=== PATIENT | female | born 1990 | race American Indian/Alaskan Native ===

== ENCOUNTER 2018-11-12 08:37 | Emergency (ER) | payer MEDICAID, OTHER ==
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
== END 2018-11-12 09:34 | disposition home or self-care (01) ==
LOC: ED 08:37
CPT/HCPCS: 99282

== ENCOUNTER 2018-11-23 12:16 | Emergency (ER) | payer SELFPAY ==
[2018-11-23 12:22] VITALS: BP 114/70
[2018-11-23] MEDS ORDERED: BOOSTRIX IM ONE (12:24)
--- NOTE | 2018-11-23 12:25 | Emergency Department Report ---
Chief Complaint: Wound/Laceration Stated Complaint: LFT PINKY INJURY Time Seen by Provider: 11/23/18 12:23 - HPI History of Present Illness: This is a 28 y.o. female that presents with a laceration to left 5th finger. Patient states she was washing dishes at home last night and accidentally cut her finger with the knife. Patient cleaned the area with soap and water and apply Neosporin. There is pain to area. Patient states it appears to be healing fine but concerned of risk of infection. She denies drainage, swelling, numbness or tingling, paresthesias, or redness. - ROS Review of Systems: Skin: Laceration to left lateral fifth finger. - Exam Vital Signs: Vital Signs 11/23/18 12:20 Temperature 97.7 F Pulse Rate 74 Respiratory 16 Rate Blood Pressure 114/70 O2 Sat by Pulse 99 Oximetry Physical Exam: GENERAL: The patient is well looking, in no acute distress. HEENT: Atraumatic and normocephalic. Pupils are equal, round, reactive to light, and accommodation. Extraocular movements are intact. There is no icterus, cyanosis, or pallor of the conjunctivae. Tympanic membranes normal bilaterally. Nasal turbinates are clear without exudates. Sinuses nontender to percussion. Posterior pharynx is normal. No exudates are noted. CHEST: Air entry is adequate bilaterally with no rhonchi, and crackles. HEART: Sounds 1 and 2 are heard and are normal. Regular rate and rhythm, no tachycardic, murmurs, gallops, or rubs. ABDOMEN: Soft and nontender. Bowel sounds are present and normal. There is no hepatosplenomegaly. SKIN: Half a centimeter laceration to left lateral distal phalanx, scan approximated, tenderness, no erythema or drainage, or swelling. EXTREMITIES: Without edema, cyanosis, or clubbing. MSE screening note: Focused history and physical exam performed. Due to findings the following was ordered: Boostrix vaccine given ED Medical Decision Making - Medical Decision Making This is a 28 y.o. female presents with left 5th digit laceration 1 day. Patient examined by me and stable. Patient is non-toxic appearing and stable. Well healing wound tenderness to touch. Given tetanus vaccine while in ER. Discharged home for outpatient treatment with clindamycin. Discussed ER care plan with patient. Patient agreed with plan. F/U with PCP. ED Disposition for MSE Clinical Impression: Laceration of finger of left hand Qualifiers: Encounter type: initial encounter Finger: little finger Damage to nail status: without damage Foreign body presence: without foreign body Qualified Code(s): S61.217A - Laceration without foreign body of left little finger without damage to nail, initial encounter Disposition: TO HOME OR SELFCARE Is pt being admited?: No Does the pt Need Aspirin: No Condition: Stable Instructions: Acute Wound Care (ED), Finger Laceration (ED) Additional Instructions: Take antibiotics as prescribed for the full course. Keep wound dry and clean for 48 hours. Avoid putting to much tension on wound site. Prop arm up on pillows to decrease swelling. Follow up with Primary Care Provider in 2-3 days. Return to ER if red, swollen, foul discharge, or fever. Prescriptions: Clindamycin [Clindamycin CAP] 300 mg PO Q8H #21 cap Referrals: [facility] [Outside] - 3-[address] [facility] [Outside] - 3-5 Days [facility] [Outside] - 3-5 Days Forms: Work/School Release Form(ED) Time of Disposition: 12:33
== END 2018-11-23 12:45 | disposition home or self-care (01) ==
LOC: ED 12:16
DX: S61.217A Laceration without foreign body of left little finger without damage to nail, initial encounter (principal); W26.0XXA Contact with knife, initial encounter; Y93.89 Activity, other specified; Y92.89 Other specified places as the place of occurrence of the external cause; Y99.8 Other external cause status
CPT/HCPCS: 90471; 90715; 99282

== ENCOUNTER 2019-12-04 02:12 | Emergency (ER) | payer SELFPAY ==
[2019-12-04] MEDS ORDERED: LACTATED RINGERS 1,000 ML IV ONE (02:38)
[2019-12-04] MEDS ORDERED: MORPHINE 4 MG/1 ML INJ IV ONE (02:38)
[2019-12-04] MEDS ORDERED: FAMOTIDINE 20 MG/2 ML INJ IV ONE (02:38)
[2019-12-04] MEDS ORDERED: ONDANSETRON 4 MG/2 ML INJ IV ONE (02:38)
[2019-12-04 02:58] LABS: Basophils # (Auto) 0.1 K/mm3 (0.0-0.1); Basophils % (Auto) 0.9 % (0.0-1.8); Eosinophils # (Auto) 0.3 K/mm3 (0.0-0.4); Eosinophils % (Auto) 2.4 % (0.0-4.3); Hematocrit 37.7 % (30.3-42.9); Hemoglobin 12.3 gm/dl (10.1-14.3); Lymphocytes # (Auto) 1.9 K/mm3 (1.2-5.4); Lymphocytes % (Auto) 17.4 % (13.4-35.0); Mean Corpuscular HGB Conc 33 % (30-34); Mean Corpuscular Volume 98 fl (79-97); Monocytes # (Auto) 0.6 K/mm3 (0.0-0.8); Monocytes % (Auto) 5.2 % (0.0-7.3); Platelet Count 248 K/mm3 (140-440); Red Blood Count 3.85 M/mm3 (3.65-5.03); Red Cell Distribution Width 12.9 % (13.2-15.2)
[2019-12-04 03:14] LABS: Alanine Aminotransferase 24 units/L (7-56); Albumin 4.1 g/dL (3.9-5); BUN/Creatinine Ratio 12; Blood Urea Nitrogen 11 mg/dL (7-17); Calcium 8.9 mg/dL (8.4-10.2); Hemolysis Index 12
--- NOTE | 2019-12-04 03:38 | Emergency Department Report ---
ED Abdominal Pain HPI - General Chief Complaint: Vaginal Bleeding Stated Complaint: VAGINAL BLEEDING/ABD PAIN Time Seen by Provider: 12/04/19 02:25 Source: patient, EMS Mode of arrival: Wheelchair Limitations: No Limitations - History of Present Illness Initial Comments: Patient is a A2 29 yo AA female who is s/p D&C procedure 1 week ago and who presents to the ED with complaint of acute onset persistent severe suprapubic pain with intractable nausea and vomiting for the last 4 days. Patient also complains of vaginal bleeding and generalized weakness. Patient states that she has not been able to keep anything down in the last 2 days and that in the last 12 hours along she has had multiple nausea and vomiting episodes. Patient denies dizziness, syncope, chest pain, shortness of breath, fever, chills, diarrhea, dysuria, urinary frequency and urgency or headache and vaginal discharge. Patient states that she has been taking ibuprofen as needed for pain with no relief. MD Complaint: abdominal pain (suprapubic pain, s/p D&C procedure 1 week ago), other (nausea and vomiting) -: Sudden, days(s) (4) Location: suprapubic Radiation: none Migration to: no migration Severity scale (0 -10): 8 Quality: cramping, sharp Consistency: constant Improves With: nothing Worsens With: vomiting Context: recent surgery/procedure (D&C procedure 1 week ago) Associated Symptoms: denies other symptoms, nausea, vomiting, hematuria. denies: diarrhea, fever, chills, constipation, dysuria, hematemesis, hematochezia, melena, anorexia, syncope - Related Data LMP (females 10-50): unknown Previous Rx's Medication Instructions Recorded Last Taken Type Butalb/Acetamin/Caff 50-325-40 1 tab PO Q6HR PRN #10 tab 11/12/18 Unknown Rx [Fioricet] Clindamycin [Clindamycin CAP] 300 mg PO Q8H #21 cap 11/23/18 Unknown Rx Famotidine [Pepcid] 20 mg PO Q12H #30 tablet 12/04/19 Unknown Rx Ondansetron [Zofran Odt] 4 mg PO Q6HR PRN #24 tab.rapdis 12/04/19 Unknown Rx traMADoL [Ultram] 50 mg PO Q6HR PRN #12 tablet 12/04/19 Unknown Rx Allergies Allergy/AdvReac Type Severity Reaction Status Date / Time No Known Allergies Allergy Verified 11/23/18 12:19 ED Review of Systems ROS: Stated complaint: VAGINAL BLEEDING/ABD PAIN Other details as noted in HPI Constitutional: denies: chills, fever Eyes: denies: eye pain, eye discharge, vision change ENT: denies: ear pain, throat pain Respiratory: denies: cough, shortness of breath, wheezing Cardiovascular: denies: chest pain, palpitations Endocrine: no symptoms reported Gastrointestinal: abdominal pain (suprapubic), nausea, vomiting. denies: diarrhea Genitourinary: hematuria, abnormal menses (vaginal bleeding). denies: urgency, dysuria, discharge Musculoskeletal: denies: back pain, joint swelling, arthralgia Skin: denies: rash, lesions Neurological: denies: headache, weakness, paresthesias Psychiatric: denies: anxiety, depression Hematological/Lymphatic: denies: easy bleeding, easy bruising ED Past Medical Hx - Past Medical History Previous Medical History?: No Additional medical history: anemia - Surgical History Past Surgical History?: No - Social History Smoking Status: Current Every Day Smoker Substance Use Type: Marijuana - Medications Home Medications: Home Medications Medication Instructions Recorded Confirmed Last Taken Type Butalb/Acetamin/Caff 50-325-40 1 tab PO Q6HR PRN #10 tab 11/12/18 Unknown Rx [Fioricet] Clindamycin [Clindamycin CAP] 300 mg PO Q8H #21 cap 11/23/18 Unknown Rx Famotidine [Pepcid] 20 mg PO Q12H #30 tablet 12/04/19 Unknown Rx Ondansetron [Zofran Odt] 4 mg PO Q6HR PRN #24 tab.rapdis 12/04/19 Unknown Rx traMADoL [Ultram] 50 mg PO Q6HR PRN #12 tablet 12/04/19 Unknown Rx ED Physical Exam - General Limitations: No Limitations General appearance: alert, in no apparent distress - Head Head exam: Present: atraumatic, normocephalic, normal inspection - Eye Eye exam: Present: normal appearance, PERRL, EOMI Pupils: Present: normal accommodation - ENT ENT exam: Present: normal exam, normal orophraynx, mucous membranes moist, TM's normal bilaterally, normal external ear exam - Neck Neck exam: Present: normal inspection, full ROM - Respiratory Respiratory exam: Present: normal lung sounds bilaterally. Absent: respiratory distress, wheezes, rales, rhonchi, chest wall tenderness, accessory muscle use - Cardiovascular Cardiovascular Exam: Present: regular rate, normal rhythm, normal heart sounds. Absent: systolic murmur, diastolic murmur, rubs, gallop - GI/Abdominal GI/Abdominal exam: Present: soft, tenderness (Palpable severe suprapubic tenderness), normal bowel sounds. Absent: guarding, rebound, hyperactive bowel sounds - Bi-manual exam: Present: other (pelvic exam deferred) - Extremities Exam Extremities exam: Present: normal inspection, full ROM, normal capillary refill - Back Exam Back exam: Present: normal inspection, full ROM. Absent: tenderness, CVA tenderness (R), CVA tenderness (L), muscle spasm, paraspinal tenderness - Neurological Exam Neurological exam: Present: alert, oriented X3, CN II-XII intact, normal gait, reflexes normal - Psychiatric Psychiatric exam: Present: normal affect, normal mood - Skin Skin exam: Present: warm, dry, intact, normal color. Absent: rash ED Course Vital Signs 12/04/19 12/04/19 12/04/19 02:17 03:56 04:00 Temperature 98.1 F 97.7 F Pulse Rate 70 60 Respiratory 16 18 18 Rate Blood Pressure 123/57 108/64 [Right] O2 Sat by Pulse 100 99 Oximetry 12/04/19 12/04/19 04:26 04:42 Temperature Pulse Rate Respiratory 18 18 Rate Blood Pressure [Right] O2 Sat by Pulse Oximetry ED Medical Decision Making - Lab Data Result diagrams: 12/04/19 02:34 12/04/19 02:34 - Radiology Data Radiology results: report reviewed, image reviewed Findings [facility] [address] [place] [address] Ultrasound Report Signed Patient: MARVIN JIMENEZ MR#: [id number] : 1990 Acct:[id number] Age/Sex: 29 / F ADM Date: 12/04/19 Loc: ED Attending Dr: Ordering Physician: IDALMIS BONNER NP Date of Service: 12/04/19 Procedure(s): US pelvic complete Accession Number(s): [id number] cc: IDALMIS BONNER NP US pelvic complete, US transvaginal INDICATION / CLINICAL INFORMATION: pelvic pain and vaginal bleeding. COMPARISON: None available. FINDINGS: The uterus measures 8 cm. Myometrial echogenicity is normal. Endometrial stripe thickness is 0.8 cm. Right ovary measures 2.8 x 2.3 cm. A 1.6 cm complex right ovarian cyst is imaged. Doppler imaging shows normal right ovarian blood flow. The left ovary measures 3.3 x 2.0 cm and is normal. Doppler imaging shows normal left ovarian blood flow. No fluid collections are seen in the cul-de-sac. IMPRESSION: 1. Small complex right ovarian cyst. 2. No evidence of ovarian torsion or other pelvic abnormality. Signer Name: Aleksander Conley MD Signed: 12/04/2019 3:54 AM Workstation Name: [id number] Transcribed By: MANUEL Dictated By: Aleksander Conley MD Electronically Authenticated By: Aleksander Conley MD Signed Date/Time: 12/04/19353 DD/ 0 TD/TT: - Medical Decision Making This is a A2 29 yo AA female who is s/p D&C procedure 1 week ago and who presents to the ED with complaint of acute onset persistent severe suprapubic pain with intractable nausea and vomiting for the last 4 days. Patient also complains of vaginal bleeding and generalized weakness. Patient states that she has not been able to keep anything down in the last 2 days and that in the last 12 hours along she has had multiple nausea and vomiting episodes. In the ED, patient is alert and oriented x3 and is not in any distress with normal vital signs. Patient was treated for pain in the ED and also given antiemetics with normal saline IV fluids. Lab test results were reviewed and showed mild leukocytosis of 11,100, and hCG quant of 1520. Given the patient is status post D&C procedure 1 week ago at 13 weeks gestation the number is consistent with the recent D&C procedure. Urinalysis is unremarkable. Transvaginal ultrasound as well as pelvic ultrasound showed small complex right ovarian cyst with no evidence of ovarian torsion or other pelvic abnormality. On reevaluation, patient's pain is well controlled medications, and patient also passed oral fluid challenge in the ED and has not had any nausea or vomiting while in the ED and after being treated with antiemetics. Patient was discharged home on antiemetics and pain medications and was advised to follow-up with [employer] physician in 5 to 7 days for reevaluation or return to the ED immediately if symptoms get worse. - Differential Diagnosis UTI; Ovarian torsion; Incomplete D&C; Endometritis; dysmenorrhea Critical care attestation.: If time is entered above; I have spent that time in minutes in the direct care of this critically ill patient, excluding procedure time. ED Disposition Clinical Impression: Abdominal pain in female patient, Nausea and vomiting in adult patient Disposition: TO HOME OR SELFCARE Is pt being admited?: No Does the pt Need Aspirin: No Condition: Stable Instructions: Abdominal Pain (ED), Acute Nausea and Vomiting (ED) Additional Instructions: Maintain a clear liquid diet for 12 to 24 hours. Take medication with food, drink plenty of fluids and follow-up with your primary care physician or [employer] physician in 5 to 7 days for reevaluation. Return to the ED immediately if symptoms get worse. Prescriptions: Famotidine [Pepcid] 20 mg PO Q12H #30 tablet traMADoL [Ultram] 50 mg PO Q6HR PRN #12 tablet PRN Reason: Pain Ondansetron [Zofran Odt] 4 mg PO Q6HR PRN #24 tab.rapdis PRN Reason: Nausea Referrals: [facility] [Provider Group] - 3-5 Days AZAR PEREZ MD [Staff Physician] - 3-5 Days Time of Disposition: 06:12 Print Language: PARAGUAYAN
--- NOTE | 2019-12-04 03:58 | Ultrasound Report ---
US pelvic complete, US transvaginal INDICATION / CLINICAL INFORMATION: pelvic pain and vaginal bleeding. COMPARISON: None available. FINDINGS: The uterus measures 8 cm. Myometrial echogenicity is normal. Endometrial stripe thickness is 0.8 cm. Right ovary measures 2.8 x 2.3 cm. A 1.6 cm complex right ovarian cyst is imaged. Doppler imaging shows normal right ovarian blood flow. The left ovary measures 3.3 x 2.0 cm and is normal. Doppler imaging shows normal left ovarian blood flow. No fluid collections are seen in the cul-de-sac. IMPRESSION: 1. Small complex right ovarian cyst. 2. No evidence of ovarian torsion or other pelvic abnormality. Signer Name: Aleksander Conley MD Signed: 12/04/2019 3:54 AM Workstation Name: [id number]
[2019-12-04 04:09] VITALS: BP 108/64
[2019-12-04] MEDS ORDERED: METOCLOPRAMIDE 10 MG/2 ML INJ IV ONE (04:27)
[2019-12-04] MEDS ORDERED: diphenhydrAMINE 50 MG/ML VIAL IV ONE (04:27)
[2019-12-04] MEDS ORDERED: SODIUM CHLORIDE 0.9% 1000 ML 1,000 ML IV ONE (04:27)
[2019-12-04] MEDS ORDERED: KETOROLAC 30 MG/1 ML INJ IV ONE (04:27)
[2019-12-04 05:29] LABS: Bilirubin,Urine NEG (Negative); Blood,Urine NEG (Negative); Color,Urine Yellow (Yellow); Mucus,Urine 1+ /HPF; Urobilinogen,Urine < 2.0 mg/dL (<2.0)
== END 2019-12-04 06:20 | disposition home or self-care (01) ==
LOC: ED 02:12
DX: R10.2 Pelvic and perineal pain (principal); R11.2 Nausea with vomiting, unspecified; N93.9 Abnormal uterine and vaginal bleeding, unspecified; D64.9 Anemia, unspecified; F17.200 Nicotine dependence, unspecified, uncomplicated; F12.10 Cannabis abuse, uncomplicated; Z79.899 Other long term (current) drug therapy
CPT/HCPCS: 36415; 76830; 76856; 80053; 81001; 84702; 84703; 85025; 86900; 86901; 96361; 96374; 96375; 99284; J1200; J1885; J2270; J2405; J2765; J7030; J7120